=== PATIENT | female | born 1965 | race African-American/Black ===

== ENCOUNTER 2017-07-15 09:24 | Emergency (ER) | payer SELFPAY ==
[2017-07-15] MEDS: ORPHENADRINE CITRATE 60 MG/2 ML VIAL. IM (10:00)
[2017-07-15] MEDS: KETOROLAC 60 MG/2 ML INJ. IM (10:00)
[2017-07-15 10:03] LABS: BILIRUBIN,URINE NEGATIVE (NEG); CLARITY,URINE CLEAR; COLOR,URINE YELLOW; GLUCOSE,URINE NEGATIVE (NEG); NITRITE,URINE NEGATIVE (NEG); PH,URINE 6.5; PROTEIN,URINE NEGATIVE (NEG-TRACE); UROBILINOGEN,URINE 0.2 mg/dL (0.2 mg/dL)
[2017-07-15 10:19] LABS: BACTERIA,URINE 0 /HPF (0-FEW); RBC,URINE 0 /HPF (0-2); WBC,URINE 0 /HPF (0-4)
== END 2017-07-15 10:49 | disposition home or self-care (01) ==
LOC: ER 09:24
DX: S39.012A Strain of muscle, fascia and tendon of lower back, initial encounter (principal); X58.XXXA Exposure to other specified factors, initial encounter; Y93.89 Activity, other specified; Y92.89 Other specified places as the place of occurrence of the external cause; Y99.8 Other external cause status
CPT/HCPCS: 81001; 96372; 99284-25; J1885; J2360